=== PATIENT | female | born 1985 | race Caucasian/White ===

== ENCOUNTER 2019-05-17 13:51 | Day surgery (SDC) | payer BC ==
[2019-05-17] MEDS ORDERED: Sodium Chloride 0.9% 1,000 ML IV ONE (14:12)
--- NOTE | 2019-05-17 14:12 | EDM.PDOC ---
ED HPI GENERAL MEDICAL PROBLEM - General Chief Complaint: Abdominal Pain Stated Complaint: PAIN IN RT SIDE Time Seen by Provider: 05/17/19 13:55 Source of Information: Reports: Patient - History of Present Illness INITIAL COMMENTS - FREE TEXT/NARRATIVE: HISTORY AND PHYSICAL: History of present illness: [generally healthy female presents with acute onset abdominal pain 5/10 non radiating in right and left lower quadrant asooc with nausea vomiting loose stool no appetite ] Review of systems: As per history of present illness and below otherwise all systems reviewed and negative. Past medical history: As per history of present illness and as reviewed below otherwise noncontributory. Surgical history: As per history of present illness and as reviewed below otherwise noncontributory. Social history: No reported history of drug or alcohol abuse. Family history: As per history of present illness and as reviewed below otherwise noncontributory. Physical exam: HEENT: Atraumatic, normocephalic, pupils reactive, negative for conjunctival pallor or scleral icterus, mucous membranes moist, throat clear, neck supple, nontender, trachea midline. Lungs: Clear to auscultation, breath sounds equal bilaterally, chest nontender. Heart: S1S2, regular, negative for clicks, rubs, or JVD. Abdomen: Soft, nondistended, nontender. Negative for masses or hepatosplenomegaly. Negative for costovertebral tenderness. Pelvis: Stable nontender. Genitourinary: Deferred. Rectal: Deferred. Extremities: Atraumatic, negative for cords or calf pain. Neurovascular unremarkable. Neuro: Awake, alert, oriented. Cranial nerves II through XII unremarkable. Cerebellum unremarkable. Motor and sensory unremarkable throughout. Exam nonfocal. Diagnostics: [cbc, cmp, ua hcg, lip abd/pelvis ct w wo ] Therapeutics: [ns toradol zofran flomax solumedrol ] Impression: 4mm right UVJ stone ]uti Definitive disposition and diagnosis as appropriate pending reevaluation and review of above. Right Abdomen Pain Score (Numeric/FACES): 7 - Related Data Allergies Allergy/AdvReac Type Severity Reaction Status Date / Time No Known Allergies Allergy Verified 05/17/19 14:04 Home Meds: Home Meds . [No Known Home Meds] 05/17/19 [History] ED ROS GENERAL - Review of Systems Review Of Systems: See Below ED EXAM, GENERAL - Physical Exam Exam: See Below Course - Vital Signs Last Recorded V/S: Last Vital Signs Temp 96.6 F 05/17/19 16:04 Pulse 68 05/17/19 17:08 Resp 16 05/17/19 17:08 BP 129/63 05/17/19 17:08 Pulse Ox 98 05/17/19 17:08 - Orders/Labs/Meds Orders: Active Orders 24 hr Category Date Time Status Admission Status [Patient Status] [ADT] Stat ADT 05/17/19 17:42 Active Notify Provider Consults [RC] ASDIRECTED Care 05/17/19 17:00 Active Consult to Physician [CONS] Stat Cons 05/17/19 16:59 Active CULTURE BLOOD [BC] Stat Lab 05/17/19 17:24 Results CULTURE BLOOD [BC] Stat Lab 05/17/19 17:34 Received CULTURE URINE [RM] Stat Lab 05/17/19 14:02 Received Blood Culture x2 Reflex Set [OM.PC] Stat Oth 05/17/19 17:00 Ordered Labs: Laboratory Tests 05/17/19 05/17/19 05/17/19 Range/Units 14:02 14:02 14:35 WBC 13.61 H (4.0-11.0) K/uL RBC 4.60 (4.30-5.90) M/uL Hgb 14.3 (12.0-16.0) g/dL Hct 42.6 (36.0-46.0) % MCV 92.6 (80.0-98.0) fL MCH 31.1 (27.0-32.0) pg MCHC 33.6 (31.0-37.0) g/dL RDW Std Deviation 45.9 (28.0-62.0) fl RDW Coeff of Summer 14 (11.0-15.0) % Plt Count 285 (150-400) K/uL MPV 12.20 H (7.40-12.00) fL Neut % (Auto) 78.6 (48.0-80.0) % Lymph % (Auto) 14.1 L (16.0-40.0) % Clark % (Auto) 7.1 (0.0-15.0) % Eos % (Auto) 0.1 (0.0-7.0) % Baso % (Auto) 0.1 (0.0-1.5) % Neut # (Auto) 10.7 H (1.4-5.7) K/uL Lymph # (Auto) 1.9 (0.6-2.4) K/uL Clark # (Auto) 1.0 H (0.0-0.8) K/uL Eos # (Auto) 0.0 (0.0-0.7) K/uL Baso # (Auto) 0.0 (0.0-0.1) K/uL Nucleated RBC % 0.0 /100WBC Nucleated RBCs # 0 K/uL Sodium (136-145) mmol/L Potassium (3.5-5.1) mmol/L Chloride (98-107) mmol/L Carbon Dioxide (21.0-32.0) mmol/L BUN (7.0-18.0) mg/dL Creatinine (0.6-1.0) mg/dL Est Cr Clr Drug Dosing mL/min Estimated GFR (MDRD) ml/min Glucose (74-106) mg/dL Calcium (8.5-10.1) mg/dL Total Bilirubin (0.2-1.0) mg/dL AST (15-37) IU/L ALT (14-63) IU/L Alkaline Phosphatase (46-116) U/L Total Protein (6.4-8.2) g/dL Albumin (3.4-5.0) g/dL Globulin (2.6-4.0) g/dL Albumin/Globulin Ratio (0.9-1.6) Lipase (73-393) U/L Urine Color YELLOW Urine Appearance CLEAR Urine pH 6.0 (5.0-8.0) Ur Specific [place] >= 1.030 (1.001-1.035) Urine Protein NEGATIVE (NEGATIVE) mg/dL Urine Glucose (UA) NEGATIVE (NEGATIVE) mg/dL Urine Ketones 15 H (NEGATIVE) mg/dL Urine Occult Blood SMALL H (NEGATIVE) Urine Nitrite POSITIVE H (NEGATIVE) Urine Bilirubin NEGATIVE (NEGATIVE) Urine Urobilinogen 0.2 (<2.0) EU/dL Ur Leukocyte Esterase TRACE H (NEGATIVE) Urine RBC 1-3 (0-2/HPF) Urine WBC 15-20 (0-5/HPF) Ur Epithelial Cells FEW (NONE-FEW) Urine Bacteria 3+ H (NEGATIVE) Urine HCG, Qual NEGATIVE (NEGATIVE) 05/17/19 Range/Units 14:35 WBC (4.0-11.0) K/uL RBC (4.30-5.90) M/uL Hgb (12.0-16.0) g/dL Hct (36.0-46.0) % MCV (80.0-98.0) fL MCH (27.0-32.0) pg MCHC (31.0-37.0) g/dL RDW Std Deviation (28.0-62.0) fl RDW Coeff of Summer (11.0-15.0) % Plt Count (150-400) K/uL MPV (7.40-12.00) fL Neut % (Auto) (48.0-80.0) % Lymph % (Auto) (16.0-40.0) % Clark % (Auto) (0.0-15.0) % Eos % (Auto) (0.0-7.0) % Baso % (Auto) (0.0-1.5) % Neut # (Auto) (1.4-5.7) K/uL Lymph # (Auto) (0.6-2.4) K/uL Clark # (Auto) (0.0-0.8) K/uL Eos # (Auto) (0.0-0.7) K/uL Baso # (Auto) (0.0-0.1) K/uL Nucleated RBC % /100WBC Nucleated RBCs # K/uL Sodium 140 (136-145) mmol/L Potassium 4.0 (3.5-5.1) mmol/L Chloride 103 (98-107) mmol/L Carbon Dioxide 19.8 L (21.0-32.0) mmol/L BUN 10 (7.0-18.0) mg/dL Creatinine 0.7 (0.6-1.0) mg/dL Est Cr Clr Drug Dosing 106.01 mL/min Estimated GFR (MDRD) > 60.0 ml/min Glucose 114 H (74-106) mg/dL Calcium 8.6 (8.5-10.1) mg/dL Total Bilirubin 0.4 (0.2-1.0) mg/dL AST 21 (15-37) IU/L ALT 22 (14-63) IU/L Alkaline Phosphatase 68 (46-116) U/L Total Protein 7.5 (6.4-8.2) g/dL Albumin 3.8 (3.4-5.0) g/dL Globulin 3.7 (2.6-4.0) g/dL Albumin/Globulin Ratio 1.0 (0.9-1.6) Lipase 70 L (73-393) U/L Urine Color Urine Appearance Urine pH (5.0-8.0) Ur Specific [place] (1.001-1.035) Urine Protein (NEGATIVE) mg/dL Urine Glucose (UA) (NEGATIVE) mg/dL Urine Ketones (NEGATIVE) mg/dL Urine Occult Blood (NEGATIVE) Urine Nitrite (NEGATIVE) Urine Bilirubin (NEGATIVE) Urine Urobilinogen (<2.0) EU/dL Ur Leukocyte Esterase (NEGATIVE) Urine RBC (0-2/HPF) Urine WBC (0-5/HPF) Ur Epithelial Cells (NONE-FEW) Urine Bacteria (NEGATIVE) Urine HCG, Qual (NEGATIVE) Meds: Medications Discontinued Medications Generic Name Dose Route Start Last Admin Trade Name Freq PRN Reason Stop Dose Admin Sodium Chloride 1,000 mls @ 999 mls/hr 05/17/19 14:12 05/17/19 14:15 Normal Saline IV 05/17/19 15:12 999 mls/hr STAT ONE Administration Ceftriaxone Sodium/Dextrose 1 50 mls @ 100 mls/hr 05/17/19 17:15 05/17/19 17: 37 gm/ Premix IV 05/17/19 17:44 100 mls/hr ONETIME ONE Administration Iopamidol 100 ml 05/17/19 16:05 05/17/19 16:06 Isovue Multipack-370 (76%) IVPUSH 05/17/19 16:06 100 ml ONETIME STA Administration Ketorolac Tromethamine 30 mg 05/17/19 14:15 05/17/19 14:17 Toradol IVPUSH 05/17/19 14:16 30 mg ONETIME ONE Administration Methylprednisolone Sodium Succinate 125 mg 05/17/19 16:58 05/17/19 17:08 Solu-Medrol IVPUSH 05/17/19 16:59 125 mg ONETIME ONE Administration Ondansetron HCl 8 mg 05/17/19 14:15 05/17/19 14:17 Zofran IVPUSH 05/17/19 14:16 8 mg ONETIME ONE Administration Tamsulosin HCl 0.4 mg 05/17/19 16:57 05/17/19 17:08 Flomax PO 05/17/19 16:58 0.4 mg ONETIME ONE Administration Departure - Departure Time of Disposition: 17:53 Disposition: Refer to Observation Condition: Fair Clinical Impression: UTI (urinary tract infection), Ureteral stone with hydronephrosis - Discharge Information Referrals: PCP,Not In Area [Primary Care Provider] - Forms: ED Department Discharge Sepsis Event Note - Evaluation Sepsis Screening Result: No Definite Risk - Focused Exam Vital Signs: Vital Signs Temp Pulse Resp BP Pulse Ox 05/17/19 17:08 68 16 129/63 98 05/17/19 16:22 150/93 H 05/17/19 16:04 96.6 F 67 16 96 05/17/19 14:04 96 F 61 16 149/87 H 98 Date Exam was Performed: 05/17/19 Time Exam was Performed: 17:53 - My Orders Last 24 Hours: My Active Orders 05/17/19 16:59 Consult to Physician [CONS] Stat 05/17/19 17:00 Notify Provider Consults [RC] ASDIRECTED Blood Culture x2 Reflex Set [OM.PC] Stat 05/17/19 17:24 CULTURE BLOOD [BC] Stat 05/17/19 17:34 CULTURE BLOOD [BC] Stat 05/17/19 17:42 Admission Status [Patient Status] [ADT] Stat - Assessment/Plan Last 24 Hours: My Active Orders 05/17/19 16:59 Consult to Physician [CONS] Stat 05/17/19 17:00 Notify Provider Consults [RC] ASDIRECTED Blood Culture x2 Reflex Set [OM.PC] Stat 05/17/19 17:24 CULTURE BLOOD [BC] Stat 05/17/19 17:34 CULTURE BLOOD [BC] Stat 05/17/19 17:42 Admission Status [Patient Status] [ADT] Stat
[2019-05-17] MEDS ORDERED: Ondansetron 4 MG/2 ML SDV IVPUSH ONE (14:15)
[2019-05-17] MEDS ORDERED: Ketorolac 30 MG/ML SDV IVPUSH ONE (14:15)
[2019-05-17 15:38] LABS: BLOOD UREA NITROGEN,BUN 10 mg/dL (7.0-18.0); CARBON DIOXIDE,CO2 19.8 mmol/L (21.0-32.0); CHLORIDE,CL 103 mmol/L (98-107); GLUCOSE RANDOM 114 mg/dL (74-106); LIPASE 70 U/L (73-393); SODIUM,NA 140 mmol/L (136-145)
[2019-05-17] MEDS ORDERED: Iopamidol 755 MG/ML 200 ML Multipack Bottle IVPUSH STA (16:05)
--- NOTE | 2019-05-17 16:33 | CT ---
Indication: Pain in mid back. Technique: Multiple contiguous axial images were obtained from the lung bases is symphysis pubis without intravenous contrast. Then, after the intravenous administration of 100 milliliters Isovue 370, again, multiple images were obtained from the lung bases through the symphysis pubis. Please note that all CT scans at this facility use dose modulation, iterative reconstruction, and/or weight-based dosing when appropriate to reduce radiation dose to as low as reasonably achievable. Comparison: None Findings: Two small soft tissue nodular densities are identified along the abdominal site of the left hemidiaphragm. The more medial and posterior measures 9 mm in size. The more lateral and anterior also measures 9 mm in size. The lung bases are clear. The heart is normal in size. No pericardial effusions identified. 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 The unenhanced liver, gallbladder, pancreas, and adrenal glands are normal. A nonobstructive 2 millimeter right renal calculus is identified on image number 72, series 201. In the pelvis, thickening of the wall the urinary bladder is identified. Bilateral ovarian cysts are identified. The cyst on the left measures approximately 6.6 x 4.1 cm in size. The cyst on the right measures 5.2 by 3.5 cm in size. A few sigmoid diverticula are identified. There is no evidence of diverticulitis. A small to moderate amount of stool is identified within the colon. The appendix is normal in caliber. To the right of midline, posterior to the level of the uterus and to the right of the rectum, a round fluid collection is identified. This measures 2.7 x 2.1 centimeters in size. This is best seen on image number 122, series 301. Is difficult to determine if this is coming from the rectum or from the uterus. No free air or free fluid is identified within the abdomen or pelvis. The aorta is normal in caliber. Bilateral hydronephrosis and hydroureter is identified. At the right ureteral vesicular junction, a 4 mm calculus is identified. This is best seen on image number 134, series 301. On the left, no stone is identified. However, the ureter is dilated to the level of the enlarged left ovary. Distal stone is suspected, but must be difficult to appreciate On the enhanced images, both kidneys enhance symmetrically. No intrahepatic masses are identified. The liver is mildly enlarged. On the enhanced CT scan Impression: Bilateral hydronephrosis and hydroureter. A distal right ureteral calculus is identified. No definite calculus is identified on the left. Bilateral ovarian cysts, greater on the left than the right. Mild hepatomegaly. Postsurgical changes of a splenomegaly. Fluid-filled structure identified posterior to the uterus and adjacent to the rectum, this may represent a duplication cyst. Thickening of the wall the urinary bladder, which can be seen with cystitis. Please note that all CT scans at this facility use dose modulation, iterative reconstruction, and/or weight-based dosing when appropriate to reduce radiation dose to as low as reasonably achievable. Dictated by Birdie Odom MD @ May 17 2019 4:21PM Signed by Dr. Birdie Odom @ May 17 2019 4:31PM
[2019-05-17] MEDS ORDERED: Tamsulosin 0.4 MG Cap.ER PO ONE (16:57)
[2019-05-17] MEDS ORDERED: methylPREDNISolone Sodium Succinate 125 MG/2 ML SDV IVPUSH ONE (16:58)
[2019-05-17] MEDS ORDERED: cefTRIAXone 1 GM in Premix Bag 1 BAG IV ONE (17:15)
--- NOTE | 2019-05-17 19:06 | PCM.PREANE ---
Preanesthetic Assessment - Anesthesia/Transfusion/Family Hx Anesthesia History: Prior Anesthesia Without Reaction Family History of Anesthesia Reaction: No Transfusion History: Unknown Intubation History: Unknown - Review of Systems General: No Symptoms Pulmonary: No Symptoms Cardiovascular: No Symptoms Gastrointestinal: No Symptoms Neurological: No Symptoms Other: Reports: None - Physical Assessment Vital Signs: Last Vital Signs Temp 35.6 C 05/17/19 18:13 Pulse 70 05/17/19 18:13 Resp 16 05/17/19 18:13 BP 144/79 H 05/17/19 18:13 Pulse Ox 97 05/17/19 18:13 Height: 5 ft 6 in Weight: 92.986 kg ASA Class: 2E Mental Status: Alert & Oriented x3 Airway Class: Mallampati = 1 Dentition: Reports: Normal Dentition Thyro-Mental Finger Breadths: 2 Mouth Opening Finger Breadths: 3 ROM/Head Extension: Full Lungs: Clear to Auscultation, Normal Respiratory Effort Cardiovascular: Regular Rate, Regular Rhythm - Lab Values: Laboratory Last Values WBC 13.61 K/uL (4.0-11.0) H 05/17/19 14:35 RBC 4.60 M/uL (4.30-5.90) 05/17/19 14:35 Hgb 14.3 g/dL (12.0-16.0) 05/17/19 14:35 Hct 42.6 % (36.0-46.0) 05/17/19 14:35 MCV 92.6 fL (80.0-98.0) 05/17/19 14:35 MCH 31.1 pg (27.0-32.0) 05/17/19 14:35 MCHC 33.6 g/dL (31.0-37.0) 05/17/19 14:35 RDW Std Deviation 45.9 fl (28.0-62.0) 05/17/19 14:35 RDW Coeff of Summer 14 % (11.0-15.0) 05/17/19 14:35 Plt Count 285 K/uL (150-400) 05/17/19 14:35 MPV 12.20 fL (7.40-12.00) H 05/17/19 14:35 Neut % (Auto) 78.6 % (48.0-80.0) 05/17/19 14:35 Lymph % (Auto) 14.1 % (16.0-40.0) L 05/17/19 14:35 Starr % (Auto) 7.1 % (0.0-15.0) 05/17/19 14:35 Eos % (Auto) 0.1 % (0.0-7.0) 05/17/19 14:35 Baso % (Auto) 0.1 % (0.0-1.5) 05/17/19 14:35 Neut # (Auto) 10.7 K/uL (1.4-5.7) H 05/17/19 14:35 Lymph # (Auto) 1.9 K/uL (0.6-2.4) 05/17/19 14:35 Starr # (Auto) 1.0 K/uL (0.0-0.8) H 05/17/19 14:35 Eos # (Auto) 0.0 K/uL (0.0-0.7) 05/17/19 14:35 Baso # (Auto) 0.0 K/uL (0.0-0.1) 05/17/19 14:35 Nucleated RBC % 0.0 /100WBC 05/17/19 14:35 Nucleated RBCs # 0 K/uL 05/17/19 14:35 Sodium 140 mmol/L (136-145) 05/17/19 14:35 Potassium 4.0 mmol/L (3.5-5.1) 05/17/19 14:35 Chloride 103 mmol/L (98-107) 05/17/19 14:35 Carbon Dioxide 19.8 mmol/L (21.0-32.0) L 05/17/19 14:35 BUN 10 mg/dL (7.0-18.0) 05/17/19 14:35 Creatinine 0.7 mg/dL (0.6-1.0) 05/17/19 14:35 Est Cr Clr Drug Dosing 106.01 mL/min 05/17/19 14:35 Estimated GFR (MDRD) > 60.0 ml/min 05/17/19 14:35 Glucose 114 mg/dL (74-106) H 05/17/19 14:35 Calcium 8.6 mg/dL (8.5-10.1) 05/17/19 14:35 Total Bilirubin 0.4 mg/dL (0.2-1.0) 05/17/19 14:35 AST 21 IU/L (15-37) 05/17/19 14:35 ALT 22 IU/L (14-63) 05/17/19 14:35 Alkaline Phosphatase 68 U/L (46-116) 05/17/19 14:35 Total Protein 7.5 g/dL (6.4-8.2) 05/17/19 14:35 Albumin 3.8 g/dL (3.4-5.0) 05/17/19 14:35 Globulin 3.7 g/dL (2.6-4.0) 05/17/19 14:35 Albumin/Globulin Ratio 1.0 (0.9-1.6) 05/17/19 14:35 Lipase 70 U/L (73-393) L 05/17/19 14:35 Urine Color YELLOW 05/17/19 14:02 Urine Appearance CLEAR 05/17/19 14:02 Urine pH 6.0 (5.0-8.0) 05/17/19 14:02 Ur Specific [place] >= 1.030 (1.001-1.035) 05/17/19 14:02 Urine Protein NEGATIVE mg/dL (NEGATIVE) 05/17/19 14:02 Urine Glucose (UA) NEGATIVE mg/dL (NEGATIVE) 05/17/19 14:02 Urine Ketones 15 mg/dL (NEGATIVE) H 05/17/19 14:02 Urine Occult Blood SMALL (NEGATIVE) H 05/17/19 14:02 Urine Nitrite POSITIVE (NEGATIVE) H 05/17/19 14:02 Urine Bilirubin NEGATIVE (NEGATIVE) 05/17/19 14:02 Urine Urobilinogen 0.2 EU/dL (<2.0) 05/17/19 14:02 Ur Leukocyte Esterase TRACE (NEGATIVE) H 05/17/19 14:02 Urine RBC 1-3 (0-2/HPF) 05/17/19 14:02 Urine WBC 15-20 (0-5/HPF) 05/17/19 14:02 Ur Epithelial Cells FEW (NONE-FEW) 05/17/19 14:02 Urine Bacteria 3+ (NEGATIVE) H 05/17/19 14:02 Urine HCG, Qual NEGATIVE (NEGATIVE) 05/17/19 14:02 - Allergies Allergies/Adverse Reactions: Allergies Allergy/AdvReac Type Severity Reaction Status Date / Time No Known Allergies Allergy Verified 05/17/19 14:04 - Blood Blood Available: No - Anesthesia Plan Pre-Op Medication Ordered: None - Acknowledgements Anesthesia Type Planned: General Anesthesia Pt an Appropriate Candidate for the Planned Anesthesia: Yes Alternatives and Risks of Anesthesia Discussed w Pt/Guardian: Yes Pt/Guardian Understands and Agrees with Anesthesia Plan: Yes PreAnesthesia Questionnaire - Past Health History Medical/Surgical History: Denies Medical/Surgical History Genitourinary History: Reports: Renal Calculus Other Hematologic History: 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 - Infectious Disease History Infectious Disease History: Reports: Chicken Pox - Past Surgical History GI Surgical History: Reports: Other (See Below) (splenectomy) - SUBSTANCE USE Smoking Status *Q: Never Smoker Recreational Drug Use History: No - HOME MEDS Home Medications: Home Meds . [No Known Home Meds] 05/17/19 [History] - CURRENT (IN HOUSE) MEDS Current Meds: Current Medications Discontinued Medications Sodium Chloride (Normal Saline) 1,000 mls @ 999 mls/hr IV STAT ONE Stop: 05/17/19 15:12 Last Admin: 05/17/19 14:15 Dose: 999 mls/hr Ceftriaxone Sodium/Dextrose 1 (gm/ Premix) 50 mls @ 100 mls/hr IV ONETIME ONE Stop: 05/17/19 17:44 Last Admin: 05/17/19 17:37 Dose: 100 mls/hr Iopamidol (Isovue Multipack-370 (76%)) 100 ml IVPUSH ONETIME STA Stop: 05/17/19 16:06 Last Admin: 05/17/19 16:06 Dose: 100 ml Ketorolac Tromethamine (Toradol) 30 mg IVPUSH ONETIME ONE Stop: 05/17/19 14:16 Last Admin: 05/17/19 14:17 Dose: 30 mg Methylprednisolone Sodium Succinate (Solu-Medrol) 125 mg IVPUSH ONETIME ONE Stop: 05/17/19 16:59 Last Admin: 05/17/19 17:08 Dose: 125 mg Ondansetron HCl (Zofran) 8 mg IVPUSH ONETIME ONE Stop: 05/17/19 14:16 Last Admin: 05/17/19 14:17 Dose: 8 mg Tamsulosin HCl (Flomax) 0.4 mg PO ONETIME ONE Stop: 05/17/19 16:58 Last Admin: 05/17/19 17:08 Dose: 0.4 mg
[2019-05-17] MEDS ORDERED: fentaNYL 100 MCG/2 ML SDV ONE (19:58)
[2019-05-17] MEDS ORDERED: Dexamethasone 4 MG/ML 5 ML MDV ONE (19:58)
[2019-05-17] MEDS ORDERED: Midazolam 1 MG/ML 2 ML SDV ONE (19:58)
[2019-05-17] MEDS ORDERED: Lidocaine 2% 5 ML SDV ONE (19:58)
[2019-05-17] MEDS ORDERED: Ondansetron 4 MG/2 ML SDV ONE (19:58)
[2019-05-17] MEDS ORDERED: Ketorolac 30 MG/ML SDV ONE (19:58)
[2019-05-17] MEDS ORDERED: Propofol 200 MG/20 ML SDV ONE (19:58)
[2019-05-17] MEDS ORDERED: Albuterol 0.083% 2.5 MG/3 ML Neb Soln NEB PRN (20:04)
[2019-05-17] MEDS ORDERED: Atropine 0.1 MG/ML 10 ML Syringe IVPUSH PRN ×2 (20:04)
[2019-05-17] MEDS ORDERED: Naloxone 0.4 MG/ML Syringe IVPUSH PRN (20:04)
[2019-05-17] MEDS ORDERED: fentaNYL 100 MCG/2 ML SDV IVPUSH PRN (20:04)
[2019-05-17] MEDS ORDERED: EPINEPHrine 1:10,000 1 MG/10 ML Syringe IVPUSH PRN (20:04)
[2019-05-17] MEDS ORDERED: 50% Dextrose in Water 50 ML Syringe IVPUSH PRN (20:04)
[2019-05-17] MEDS ORDERED: Ciprofloxacin in D5W 200 ML ONE (20:29)
[2019-05-17] MEDS ORDERED: Iopamidol 200-M 10 ML vial ITHECAL ONE ×2 (20:33)
[2019-05-17] MEDS ORDERED: Meperidine PF 25 MG/ML Syringe ONE (21:25)
--- NOTE | 2019-05-17 22:02 | PCM48HPAN ---
Post Anesthesia Note - EVALUATION WITHIN 48HRS OF ANESTHETIC Vital Signs in Normal Range: Yes Patient Participated in Evaluation: Yes Respiratory Function Stable: Yes Airway Patent: Yes Cardiovascular Function Stable: Yes Hydration Status Stable: Yes Pain Control Satisfactory: Yes Nausea and Vomiting Control Satisfactory: Yes Mental Status Recovered: Yes Vital Signs: Last Vital Signs Temp 36.8 C 05/17/19 21:23 Pulse 73 05/17/19 21:49 Resp 16 05/17/19 21:49 BP 124/74 05/17/19 21:49 Pulse Ox 98 05/17/19 21:49
--- NOTE | 2019-05-17 22:03 | PCM.POSTAN ---
POST ANESTHESIA ASSESSMENT - MENTAL STATUS Mental Status: Alert, Oriented - VITAL SIGNS Vital Signs: Last Vital Signs Temp 36.8 C 05/17/19 21:23 Pulse 73 05/17/19 21:49 Resp 16 05/17/19 21:49 BP 124/74 05/17/19 21:49 Pulse Ox 98 05/17/19 21:49 - RESPIRATORY Respiratory Status: Respiratory Rate WNL, Airway Patent, O2 Saturation Stable - CARDIOVASCULAR CV Status: Pulse Rate WNL, Blood Pressure Stable - GASTROINTESTINAL GI Status: No Symptoms - POST OP HYDRATION Hydration Status: Adequate & Stable
--- NOTE | 2019-05-18 02:56 | OR ---
SURGEON: Shaun French M.D. DATE OF PROCEDURE: 05/17/2019 PREOPERATIVE DIAGNOSES: 1. Bilateral hydronephrosis. 2. Right lower ureteral stone. 3. Urinary tract infection. POSTOPERATIVE DIAGNOSES: 1. Bilateral hydronephrosis. 2. Right lower ureteral stone. 3. Urinary tract infection. OPERATIONS: 1. Cystoscopy. 2. Right ureteroscopy. 3. Bilateral double-J stent placement. DESCRIPTION: The patient was given general anesthesia. She was placed in the dorsal lithotomy position, prepped, and draped in sterile drapes. Cystourethroscopy was done that showed cystitis glandularis. A guidewire was advanced in the right ureter. The lower ureter was then dilated using a UroMax balloon dilator to approximately 15-Amharic. A rigid ureteroscope was advanced in the right ureter. The stone was visualized behind a narrow part of the ureter, so the UroMax was placed back in, and that narrow area was dilated. The guidewire was still in place. The rigid ureteroscope was advanced in the right ureter. The stone was removed. On the way out, the stone fell out of the grasper before it could be delivered. The second ureteroscopy that was done after the narrow area was dilated showed that the ureter in that particular spot was torn, which is what the UroMax had done. A 6-Amharic 26 cm double-J stent was done. The left side was then cannulated with a guidewire, over which a 6-Amharic 26 cm double-J stent was placed, and that resulted in what is most consistent with a hydronephrotic drip on that side. The bladder was emptied, and the patient was moved to the recovery room in good condition. PLAN: Those [address] be in place for the next 6 weeks, primarily because of the tear in the right ureter to allow that to heal and also to allow her time to consult with a software tools engineer regarding the ovarian cyst and the possible compression of the left ureter. YOSEPH / STEPHIE /[id number]
--- NOTE | 2019-05-18 08:03 | CONS ---
DATE OF CONSULTATION: 05/17/2019 DATE OF : 1985 PRIMARY CARE PHYSICIAN: Kosta Hernández PCP HISTORY OF PRESENT ILLNESS: 34 years old. She was seen in the emergency room with sudden onset of right flank pain. No previous history of urinary stones. Her UA showed 1 to 3 red blood cells per high-power field and 15 to 20 white blood cells per high-power field. She had white blood count of 13,000. Her vital signs were normal. She was afebrile. She had a CT scan that I reviewed, and that showed a 4 mm right lower ureteral stone, bilateral large ovarian cysts, and left-sided hydronephrosis with no stones. PHYSICAL EXAMINATION: GENERAL: She is alert. She is oriented. She is reasonably comfortable at this time. HEART: Normal sinus rhythm. LUNGS: Clear. ABDOMEN: Mild tenderness over the right side of the abdomen. DIAGNOSES: 1. Right ureteral stone. 2. Bilateral hydronephrosis. PLAN: Right ureteroscopy and bilateral stent placement. The other option would have been to put a double-J stent in, give her IV antibiotics, and wait. However, because she is stable and the stone is relatively small and in the lower ureter, I decided to go ahead and take the stone out instead of just putting her to sleep and putting a double-J stent in. In preparation for that, she received 1 g of Rocephin IV and 400 mg of Cipro IV. YOSEPH / STEPHIE /[id number]
--- NOTE | 2019-05-20 14:14 | CR ---
EXAM DATE: 05/17/19 PATIENT'S AGE: 34 Abdomen: Two fluoroscopic spot views were obtained utilizing C-arm device. Study shows partially visualized ureteral stent. Fluoroscopy time given as 32.8 seconds. Impression: 1. Procedural study. Diagnostic code #2 This report was dictated in [place] Standard Time Report Signed by Proxy. PEYTON
== END 2019-05-18 00:15 | disposition home or self-care (01) ==
LOC: MW.ED 13:51 → MW.SDS 17:55 → MW.MS 17:55 → MW.SDS 05-18 00:15
PROVIDERS: ATTEND Urology
DX: N13.2 Hydronephrosis with renal and ureteral calculous obstruction (principal); N39.0 Urinary tract infection, site not specified
CPT/HCPCS: 36415; 52332; 52352; 74178; 76000; 80053; 81001; 81025; 83690; 85025; 87040; 87086; 87088; 87186; 96361; 96365; 96375; 99285; A9270; C1769; C2617; J0696; J0744; J1100; J1885; J2001; J2250; J2405; J2704; J2930; J3010; J7030; Q9966; Q9967; 00910; 99284

== ENCOUNTER 2019-07-20 09:08 | Day surgery (SDC) | payer BC ==
[~2019-07-20 09:08] MED LIST: Dexamethasone 4 MG/ML 5 ML MDV ONE; Glycopyrrolate 0.2 MG/ML SDV ONE; Midazolam 1 MG/ML 2 ML SDV ONE; Neostigmine Methylsulfate 1 MG/ML 5 ML Syringe ONE; Ondansetron 4 MG/2 ML SDV ONE; Propofol 200 MG/20 ML SDV ONE; Rocuronium 100 MG/10 ML Syringe ONE; Sodium Chloride 0.9% 10 ML SDV IV PRN; Sodium Chloride 0.9% 10 ML Syringe FLUSH PRN; Sodium Chloride 0.9% 2.5 ML Syringe FLUSH PRN; Sodium Chloride 0.9% 20 ML ONE; Succinylcholine/Sod PF 100 MG/5 ML SYRINGE IV ONE; ceFAZolin/Dextrose,Iso-Osmotic 2 GM/50 ML Duplex Bag IV ONE; ePHEDrine 50 MG/ML SDV ONE; fentaNYL 250 MCG/5 ML SDV ONE
--- NOTE | 2019-07-20 09:38 | PCM.PREANE ---
Preanesthetic Assessment - Anesthesia/Transfusion/Family Hx Anesthesia History: Prior Anesthesia Without Reaction Family History of Anesthesia Reaction: No Transfusion History: No Prior Transfusion(s) Intubation History: Unknown - Review of Systems General: No Symptoms Pulmonary: No Symptoms Cardiovascular: No Symptoms Gastrointestinal: No Symptoms Neurological: No Symptoms Other: Reports: None - Physical Assessment Height: 5 ft 5.75 in Weight: 97.069 kg ASA Class: 2 Mental Status: Alert & Oriented x3 Airway Class: Mallampati = 2 Dentition: Reports: Normal Dentition Thyro-Mental Finger Breadths: 2 Mouth Opening Finger Breadths: 3 ROM/Head Extension: Full Lungs: Clear to Auscultation, Normal Respiratory Effort Cardiovascular: Regular Rate, Regular Rhythm - Allergies Allergies/Adverse Reactions: Allergies Allergy/AdvReac Type Severity Reaction Status Date / Time adhesive tape Allergy Redness Verified 07/15/19 09:39 latex Allergy Rash Verified 07/15/19 09:39 - Blood Blood Available: No - Anesthesia Plan Pre-Op Medication Ordered: None - Acknowledgements Anesthesia Type Planned: General Anesthesia Pt an Appropriate Candidate for the Planned Anesthesia: Yes Alternatives and Risks of Anesthesia Discussed w Pt/Guardian: Yes Pt/Guardian Understands and Agrees with Anesthesia Plan: Yes PreAnesthesia Questionnaire - Past Health History Medical/Surgical History: Denies Medical/Surgical History HEENT History: Reports: None Cardiovascular History: Reports: None Respiratory History: Reports: None Gastrointestinal History: Reports: None Genitourinary History: Reports: Renal Calculus (lithotripsy and stent placement 05/17/19) SCHEDULING MANAGER History: Reports: Other (See Below) (large bill. ovarian cyst) Musculoskeletal History: Reports: None Neurological History: Reports: None Psychiatric History: Reports: None Endocrine/Metabolic History: Reports: Obesity/BMI 30+ Hematologic History: Reports: Other (See Below) Other Hematologic History: 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 [No Known Home Meds] 05/17/19 [History] - CURRENT (IN HOUSE) MEDS Current Meds: Current Medications Lactated Ringer's (Ringers, Lactated) 1,000 mls @ 500 mls/hr IV BOLUS TAWANNA Sodium Chloride (Saline Flush) 10 ml FLUSH ASDIRECTED PRN PRN Reason: Keep Vein Open Sodium Chloride (Saline Flush) 2.5 ml FLUSH ASDIRECTED PRN PRN Reason: Keep Vein Open Sodium Chloride (Normal Saline) 10 ml IV ASDIRECTED PRN PRN Reason: IV Use Sodium Chloride (Saline Flush) 10 ml FLUSH ASDIRECTED PRN PRN Reason: Keep Vein Open Sodium Chloride (Saline Flush) 2.5 ml FLUSH ASDIRECTED PRN PRN Reason: Keep Vein Open Sodium Chloride (Normal Saline) 10 ml IV ASDIRECTED PRN PRN Reason: IV Use Discontinued Medications Cefazolin Sodium/Dextrose (Ancef) Confirm Administered Dose 2 gm IV .STK-MED ONE Stop: 07/20/19 09:05 Dexamethasone (Dexamethasone) Confirm Administered Dose 20 mg .ROUTE .STK-MED ONE Stop: 07/20/19 08:34 Ephedrine Sulfate (Ephedrine Sulfate) Confirm Administered Dose 50 mg .ROUTE .STK-MED ONE Stop: 07/20/19 08:34 Fentanyl (Sublimaze) Confirm Administered Dose 250 mcg .ROUTE .STK-MED ONE Stop: 07/20/19 08:48 Glycopyrrolate (Robinul) Confirm Administered Dose 0.6 mg .ROUTE .STK-MED ONE Stop: 07/20/19 08:34 Sodium Chloride (Normal Saline) Confirm Administered Dose 20 mls @ as directed .ROUTE .STK-MED ONE Stop: 07/20/19 08:35 Midazolam HCl (Versed 1 Mg/Ml) Confirm Administered Dose 2 mg .ROUTE .STK-MED ONE Stop: 02/18/20 08:47 Neostigmine Methylsulfate (Neostigmine) Confirm Administered Dose 5 mg .ROUTE .STK-MED ONE Stop: 07/20/19 08:34 Ondansetron HCl (Zofran) Confirm Administered Dose 4 mg .ROUTE .STK-MED ONE Stop: 07/20/19 08:34 Propofol (Diprivan 20 Ml) Confirm Administered Dose 200 mg .ROUTE .STK-MED ONE Stop: 07/20/19 08:48 Rocuronium [place] (Zemuron) Confirm Administered Dose 100 mg .ROUTE .STK-MED ONE Stop: 07/20/19 08:34
[2019-07-20] MEDS ORDERED: Sodium Chloride 0.9% 2.5 ML Syringe FLUSH PRN (10:00)
[2019-07-20] MEDS ORDERED: Lactated Ringers 1,000 ML IV SCH (10:00)
[2019-07-20] MEDS ORDERED: Sodium Chloride 0.9% 10 ML SDV IV PRN (10:00)
[2019-07-20] MEDS ORDERED: Sodium Chloride 0.9% 10 ML Syringe FLUSH PRN (10:00)
[2019-07-20] MEDS ORDERED: EPINEPHrine 1:10,000 1 MG/10 ML Syringe IVPUSH PRN (11:11)
[2019-07-20] MEDS ORDERED: Naloxone 0.4 MG/ML Syringe IVPUSH PRN (11:11)
[2019-07-20] MEDS ORDERED: Albuterol 0.083% 2.5 MG/3 ML Neb Soln NEB PRN (11:11)
[2019-07-20] MEDS ORDERED: fentaNYL 100 MCG/2 ML SDV IVPUSH PRN ×2 (11:11→11:31)
[2019-07-20] MEDS ORDERED: Atropine 0.1 MG/ML 10 ML Syringe IVPUSH PRN ×2 (11:11)
[2019-07-20] MEDS ORDERED: 50% Dextrose in Water 50 ML Syringe IVPUSH PRN (11:11)
[2019-07-20] MEDS ORDERED: Bupivacaine 0.25% 10 ML SDV ONE (11:19)
[2019-07-20] MEDS ORDERED: Methylene Blue 50 MG/10 ML Ampule ONE (11:20)
[2019-07-20] MEDS ORDERED: HYDROmorphone 2 MG/ML Syringe IVPUSH PRN (11:31)
[2019-07-20] MEDS ORDERED: fentaNYL 100 MCG/2 ML SDV ONE ×4 (12:36→14:19)
[2019-07-20] MEDS ORDERED: Labetalol 100 MG/20 ML MDV ONE (12:51)
[2019-07-20] MEDS ORDERED: Octyl 2-Cyanoacrylate 1 Tube ONE (14:14)
[2019-07-20] MEDS ORDERED: Acetaminophen/oxyCODONE 325-5 MG Tab PO PRN (14:41)
--- NOTE | 2019-07-20 14:46 | PCM.OPNOTE ---
- General Post-Op/Procedure Note Date of Surgery/Procedure: 07/20/19 Operative Procedure(s): Laparoscopic Bilateral cystectomy. Lysis of Adhesion Findings: EUA showed normal sized uterus Laparoscopy showed Dense pelvic adhesive diseases Endometriotic deposits (brown spots around all the abdomen, pelvis and bowel) Left ovarian endometrioma about 5cm ,densely adhered to the pelvic side wall, Uterus and entangled with fallopian tubes Right ovarian endometrioma about 2 cm Dense adhesion between the sigmoid colon and back of uterus Pre Op Diagnosis: Bilateral ovarian cyst Post-Op Diagnosis: Endometriosis. Bilateral endometrioma Anesthesia Technique: General ET Tube Primary Surgeon: Milind Car Secondary Surgeon: Farhat Her [facility] Pathology: Ovarian cyst wall Fluid Replacement, Intraop: 1,800 EBL in mLs: 20 Complications: None Condition: Good
[2019-07-20] MEDS: hydrALAZINE 20 MG/ML SDV IVPUSH PRN ×2 (15:06→15:50)
--- NOTE | 2019-07-20 15:41 | PCM.POSTAN ---
POST ANESTHESIA ASSESSMENT - MENTAL STATUS Mental Status: Alert, Oriented - VITAL SIGNS Vital Signs: Last Vital Signs Temp 36.6 C 07/20/19 14:37 Pulse 78 07/20/19 15:33 Resp 13 07/20/19 15:33 BP 153/80 H 07/20/19 15:33 Pulse Ox 93 L 07/20/19 15:33 - RESPIRATORY Respiratory Status: Respiratory Rate WNL, Airway Patent, O2 Saturation Stable - CARDIOVASCULAR CV Status: Pulse Rate WNL, Blood Pressure Stable - GASTROINTESTINAL GI Status: No Symptoms - PAIN Pain Score: 2 - POST OP HYDRATION Hydration Status: Adequate & Stable - OBSERVATIONS Free Text/Narrative:: No anesthesia problems
--- NOTE | 2019-07-20 16:59 | PCM48HPAN ---
Post Anesthesia Note - EVALUATION WITHIN 48HRS OF ANESTHETIC Vital Signs in Normal Range: Yes Patient Participated in Evaluation: Yes Respiratory Function Stable: Yes Airway Patent: Yes Cardiovascular Function Stable: Yes Hydration Status Stable: Yes Pain Control Satisfactory: Yes Nausea and Vomiting Control Satisfactory: Yes Mental Status Recovered: Yes Vital Signs: Last Vital Signs Temp 36.6 C 07/20/19 14:37 Pulse 102 H 07/20/19 16:45 Resp 15 07/20/19 16:45 BP 140/63 07/20/19 16:45 Pulse Ox 95 07/20/19 16:45 - COMMENTS/OBSERVATIONS Free Text/Narrative:: no anesthesia problems
--- NOTE | 2019-07-21 16:24 | OR ---
SURGEON: SIVAKUMAR KINGSLEY DATE OF PROCEDURE: 07/20/2019 PREOPERATIVE DIAGNOSIS: A 34-year-old para 0 with findings of bilateral ovarian cyst. POSTOPERATIVE DIAGNOSES: Bilateral endometrioma and severe pelvic adhesive disease. PRIMARY SURGEON: Dr. Sivakumar Kingsley. SECONDARY SURGEON: Farhat Her MD. COMPLICATIONS: None. ANESTHESIA: General endotracheal. ESTIMATED BLOOD LOSS: 10 mL. NOTES AND FINDINGS: 1. Severe pelvic adhesive disease. 2. Bilateral ovarian cyst. Left was about 5 cm. Right was about 3 cm dilated ovarian cyst. The dense adhesions, especially on the left side of the fallopian tube, matted with the colon in the posterior cul-de-sac in close proximity with the uterosacrals. Also, on the back of the uterus was noted a lot of cystic changes consistent with inflammation. The abdomen all the way to the colon had endometriotic deposits, brownish tarry deposits around the intestines and the abdominal ramirez. COMPLICATION: None. BRIEF HISTORY: A 34-year-old who was referred by Dr. French because of CT finding of bilateral ovarian cyst. She was noted also to have a left hydroureter as a result of the ovarian cyst compressing the ureter on the left side. Prior to this, she already had a stent placed by Dr. French. The patient denied any pain. She denies any pelvic pain. DESCRIPTION OF PROCEDURE: The patient was taken to the operating room where general anesthesia was done without difficulty. She was placed in dorsal lithotomy position with Luis Enrique stirrups. She was prepared and draped in the normal sterile fashion. The bladder was emptied with a straight cath. The speculum was used to expose the cervix and the uterine manipulator was placed in after dilation of the cervix. Then, attention was placed to the abdomen. Subumbilical fold was infiltrated with 0.25% Marcaine. A 5 mm incision was made. The abdomen was entered via direct entry with the fiberoptic trocar and pneumoperitoneum was obtained with CO2 mmHg. The patient was then placed in Trendelenburg position. The right and left lower quadrant ports were placed 2 fingerbreadths medial and superior to the anterior superior iliac spine. The above-noted finding was noted with dense adhesions of the ovary to the sidewall, the posterior cul-de- sac, and the colon. The bowel also had spots of endometriotic deposits. First attempt was made to free the fallopian tube and ovaries for easy access of the endometrioma. This was done with mainly blunt dissection and also with hydrodissection. When the fallopian tube was released, the attempt was made to do a cystectomy for the cyst ruptured and a chocolate cyst fluid was expelled from the cyst and it was suctioned and copious irrigation was done. Then, the attempt was made to separate the cyst wall from the ovary, which was done with the aid of the unipolar scissors and this was done without any difficulty and hemostasis was noted also in the base of the ovary with the Kleppinger device and hemostasis was noted on the ovary. Then, the cystectomy was started on the right ovary. The right ovary was more mobile than compared to the left and the incision was made with the aid of the unipolar scissors. The content of the cyst was drained and the cyst wall was removed without any difficulty after which the abdomen was irrigated with about 1 L of water and was expected, hemostasis was noted. The trocars were then removed and the incision was closed with 3-0 Monocryl and Dermabond. The patient tolerated the procedure well and taken to recovery room in stable condition. JOSE CARD /[id number]
== END 2019-07-20 18:15 | disposition home or self-care (01) ==
LOC: MW.SDS 09:08
PROVIDERS: ATTEND Obstetrics & Gynecology
DX: N83.201 Unspecified ovarian cyst, right side (principal); N83.202 Unspecified ovarian cyst, left side; N80.1 Endometriosis of ovary; K66.0 Peritoneal adhesions (postprocedural) (postinfection); N13.4 Hydroureter; E66.9 Obesity, unspecified; Z68.34 Body mass index [BMI] 34.0-34.9, adult; Z91.048 Other nonmedicinal substance allergy status; Z91.040 Latex allergy status
CPT/HCPCS: 36415; 58662; 84702; 85027; 86850; 86900; 86901; A9270; J0360; J0690; J1100; J1170; J2250; J2405; J2704; J3010; J3490; J7120; 88104; 88305

== ENCOUNTER 2021-02-25 12:33 | Emergency (ER) | payer BC ==
[2021-02-25] MEDS ORDERED: Sodium Chloride 0.9% 2.5 ML Syringe FLUSH PRN (13:52)
[2021-02-25] MEDS ORDERED: Sodium Chloride 0.9% 10 ML Syringe FLUSH PRN (13:52)
[2021-02-25] MEDS ORDERED: Ondansetron 4 MG/2 ML SDV IVPUSH ONE (13:52)
[2021-02-25] MEDS ORDERED: Sodium Chloride 0.9% 1,000 ML IV ONE (13:52)
--- NOTE | 2021-02-25 13:54 | EDM.PDOC ---
ED HPI GENERAL MEDICAL PROBLEM - General Chief Complaint: General Stated Complaint: BODY PAIN Time Seen by Provider: 02/25/21 13:03 Source of Information: Reports: Patient History Limitations: Reports: No Limitations - History of Present Illness INITIAL COMMENTS - FREE TEXT/NARRATIVE: HISTORY AND PHYSICAL: History of present illness: The patient is a 36-year-old female who presents to the emergency room with complaints of fever, muscle aches, dizziness and brain fog for 1 week. The patient states that she also started having a fever about 5 days ago her max was 102 and her normal has been 100 at home. The patient states that she has been drinking fluids as it is that her urine looked a little concentrated this morning. She has had a dry cough. She has had a headache but no sore throat. She states she was a little nauseated yesterday and today. She has not been eating or drinking consistently. Patient has a history of splenectomy about 3 years ago. The patient is not vaccinated for Covid and has not tested positive for Covid in the past. In the emergency room the patient is hemodynamically stable with a slightly tachycardic heart rate of 113 and a blood pressure 125/80. She is afebrile with a temperature of 98.3. The patient is in no respiratory distress with a respiratory rate of 15 and an SPO2 of 98% on room air. Review of systems: As per history of present illness and below otherwise all systems reviewed and negative. Past medical history: As per history of present illness and as reviewed below otherwise noncontributory. Surgical history: As per history of present illness and as reviewed below otherwise noncontributory. Social history: See social history for further information Family history: As per history of present illness and as reviewed below otherwise noncontributory. Physical exam: General: Well developed and well nourished. Alert and orientated x 3. Nontoxic in appearance and in no acute distress. Vital signs are stable and have been reviewed by me. Nursing notes were reviewed. HEENT: Atraumatic, normocephalic, pupils equal and reactive bilaterally, negative for conjunctival pallor or scleral icterus, mucous membranes moist, TMs normal bilaterally, throat clear, neck supple, nontender, trachea midline. No drooling or trismus noted. No meningeal signs. No hot potato voice noted. Lungs: Clear to auscultation bilaterally. No wheezes, rales, or rhonchi. Chest nontender. Normal work of breathing, no accessory muscles used. Heart: S1S2, regular rate and rhythm without overt murmur, gallops, or rubs. No JVD. No peripheral edema Abdomen: Soft, nondistended, nontender. Normoactive bowel sounds. Negative for masses or costovertebral tenderness. Skin: Intact, warm, dry. No lesions or rashes noted. Hematologic: No petechiae or purpra. Mucosa appropriate color and normal nail bed color and refill. Extremities: Atraumatic, moves all extremities per self without difficulty or deficits, negative for cords or calf pain. Neurovascular unremarkable. Neuro: Awake, alert, oriented. Cranial nerves II through XII unremarkable. Cerebellum unremarkable. Motor and sensory unremarkable throughout. Exam nonfocal. Psychiatric: Mood and affect are appropriate. Normal thought process. Answering questions appropriately. Notes: *This patient was seen and evaluated during the 2019 SARS-CoV-2 novel coronavirus pandemic period. Community viral transmission is ongoing at time of this encounter and the emergency department is operating under pandemic response procedures. As stated above the patient is a 36-year-old female who presents to the emergency room with fever, muscle aches, dizziness, brain fog, fever, and a dry cough for about 1 week. I have ordered blood work, strep test, COVID-19 swab, chest x-ray. The patient's CBC is remarkable for a hemoglobin of 10.1, hematocrit 33.9, MCV 74.2, MCHC 29.8. The anemia is microcytic hypochromic which could indicate blood loss or iron deficiency. The patient's guaiac was negative for the blood. The Patient states that she has heavy menstrual periods. I will order a abdomen CT to rule out any acute process. The patient is agreeable with this plan. Chest x-ray IMPRESSION: Lungs are clear. CT abdomen pelvis IMPRESSION: 1. Patchy areas of alveolar consolidation in the right middle lobe, left lingula and both lower lobes; diagnostic of COVID-19 infection. 2. No kidney stones or obstructive uropathy. 3. Normal appendix. 4. Abnormalities identified involving the uterus and adnexa bilateral; suggest transabdominal and transvaginal pelvic ultrasound. 5. 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 Dr. Man consulted regarding case. I have spoken with the patient and informed her of her Covid positive and the treatment regarding it. I informed the patient of her anemia and the need for a work-up by her primary care physician. I also informed the patient of her CT results and the need to follow-up with her primary care regarding it. The patient is agreeable to this discharge plan. I instructed the patient initiated to get a portable oxygen saturation device and she stated that she has one at home. Instructed the patient that she needs to return if her O2 sat gets below 90. The patient verbalized understanding. I have talked with the patient about today's findings, in addition to providing specific details for plan of care. Reassessment at the time of disposition demonstrates that the patient is in no acute distress. The patient is stable for discharge, counseling was provided and we discussed in great detail signs and symptoms that would prompt them to return to the Emergency Department. Medication, follow up and supportive care measures were reviewed and discussed. Voices understanding and is agreeable to plan of care. Denies any further questions or concerns at this time. Diagnostics: BC, CMP, chest x-ray, abdomen/pelvis CT Therapeutics: IV fluids, Zofran Impression: Anemia, COVID-19 Plan: 1. You were evaluated today on an emergent basis. Your complaints of fever, muscle aches, dizziness and brain fog along with your fever was evaluated with blood work which showed that you were anemic. You need to have an iron deficiency work-up for your anemia with your primary care provider. Your Covid swab was positive for COVID-19. Therefore you need to isolate and will be released by the state. Due to your anemia we did a CT which showed IMPRESSION 1. Patchy areas of alveolar consolidation in the right middle lobe, left lingula and both lower lobes; diagnostic of COVID-19 infection. 2. No kidney stones or obstructive uropathy. 3. Normal appendix. 4. Abnormalities identified involving the uterus and adnexa bilateral; suggest transabdominal and transvaginal pelvic ultrasound. 5. 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 2. Your COVID-19 screening is positive. That means you do have the coronavirus and you are considered contagious. Your vital signs and oxygen saturation are well enough that you were able to monitor your symptoms at home. Continue to monitor for trouble breathing, new confusion or inability to arouse, bluish lips or face or any of the other symptoms we discussed -if this occurs please return to the emergency room. 3. Please self quarantine until cleared by [facility] Department. Inform any persons that you have been in contact with since you started becoming symptomatic that you have tested positive; they should be made aware and take the appropriate steps as needed. 4. You can take NyQuil during the evening to help get a restful night sleep. May alternate Tylenol and ibuprofen as needed for pain and fever management. 5. The [facility] department will be calling you and following up with you. The [employer] Hotline phone number , They are open Friday - Friday 7am - 7pm. Follow up with your primary care provider for re-evaluation and re-testing after the 10 day quarantine and discuss when you should be seen. Definitive disposition and diagnosis as appropriate pending reevaluation and review of above. Treatments CORRESPONDENCE TRANSCRIBER: Reports: Acetaminophen - Related Data Allergies Allergy/AdvReac Type Severity Reaction Status Date / Time adhesive tape Allergy Redness Verified 07/15/19 09:39 latex Allergy Rash Verified 07/15/19 09:39 Home Meds: Home Meds Acetaminophen/oxyCODONE [Percocet 325-5 MG] 1 - 2 tab PO Q4H PRN 5 Days #15 tablet 07/20/19 [Rx] Past Medical History - Past Health History Medical/Surgical History: Denies Medical/Surgical History HEENT History: Reports: None Cardiovascular History: Reports: None Respiratory History: Reports: None Gastrointestinal History: Reports: None Genitourinary History: Reports: Renal Calculus SENIOR ENVIRONMENTAL TECHNICIAN History: Reports: Other (See Below) Other SENIOR ENVIRONMENTAL TECHNICIAN History: ovarian cyst Musculoskeletal History: Reports: None Neurological History: Reports: None Psychiatric History: Reports: None Endocrine/Metabolic History: Reports: Obesity/BMI 30+ Hematologic History: Reports: Other (See Below) Other Hematologic History: 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 Female Surgical History: Reports: Kidney stone extraction Other Female Surgeries/Procedures: rt ureteroscopy with stent placement May 17, 2019 Endocrine Surgical History: Reports: None Neurological Surgical History: Reports: None Musculoskeletal Surgical History: Reports: None Oncologic Surgical History: Reports: None Dermatological Surgical History: Reports: None Social & Family History - Family History Family Medical History: No Pertinent Family History - Tobacco Use Tobacco Use Status *Q: Never Tobacco User Second Hand Smoke Exposure: Yes - Caffeine Use Caffeine Use: Reports: None - Recreational Drug Use Recreational Drug Use: No ED ROS GENERAL - Review of Systems Review Of Systems: Comprehensive ROS is negative, except as noted in HPI. ED EXAM, GENERAL - Physical Exam Exam: See Below (See dictation) Course - Vital Signs Last Recorded V/S: Last Vital Signs Temp 98.3 F 02/25/21 12:58 Pulse 113 H 02/25/21 12:58 Resp 15 02/25/21 12:58 BP 125/80 02/25/21 12:58 Pulse Ox 98 02/25/21 12:58 - Orders/Labs/Meds Orders: Active Orders 24 hr Category Date Time Status Sodium Chloride 0.9% [Saline Flush] Med 02/25/21 13:52 Active 10 ml FLUSH ASDIRECTED PRN Sodium Chloride 0.9% [Saline Flush] Med 02/25/21 13:52 Active 2.5 ml FLUSH ASDIRECTED PRN Saline Lock Insert [OM.PC] Stat Oth 02/25/21 13:52 Ordered Medication Orders Sodium Chloride (Sodium Chloride 0.9% 10 Ml Syringe) 10 ml FLUSH ASDIRECTED PRN PRN Reason: Keep Vein Open Last Admin: 02/25/21 14:41 Dose: 10 ml Documented by: SADIE Sodium Chloride (Sodium Chloride 0.9% 2.5 Ml Syringe) 2.5 ml FLUSH ASDIRECTED PRN PRN Reason: Keep Vein Open Last Admin: 02/25/21 14:41 Dose: 2.5 ml Documented by: SADIE Labs: Laboratory Tests 02/25/21 02/25/21 02/25/21 Range/Units 14:26 14:26 14:55 WBC 5.01 (4.0-11.0) K/uL RBC 4.57 (4.30-5.90) M/uL Hgb 10.1 L (12.0-16.0) g/dL Hct 33.9 L (36.0-46.0) % MCV 74.2 L (80.0-98.0) fL MCH 22.1 L (27.0-32.0) pg MCHC 29.8 L (31.0-37.0) g/dL RDW Std Deviation 48.4 (28.0-62.0) fl RDW Coeff of Summer 18 H (11.0-15.0) % Plt Count 235 (150-400) K/uL MPV 10.60 (7.40-12.00) fL Neut % (Auto) 47.3 L (48.0-80.0) % Lymph % (Auto) 35.3 (16.0-40.0) % [place] % (Auto) 17.0 H (0.0-15.0) % Eos % (Auto) 0.0 (0.0-7.0) % Baso % (Auto) 0.4 (0.0-1.5) % Neut # (Auto) 2.4 (1.4-5.7) K/uL Lymph # (Auto) 1.8 (0.6-2.4) K/uL [place] # (Auto) 0.9 H (0.0-0.8) K/uL Eos # (Auto) 0.0 (0.0-0.7) K/uL Baso # (Auto) 0.0 (0.0-0.1) K/uL Nucleated RBC % 0.0 /100WBC Nucleated RBCs # 0 K/uL Sodium 140 (136-145) mmol/L Potassium 3.3 L (3.5-5.1) mmol/L Chloride 101 (98-107) mmol/L Carbon Dioxide 27.3 (21.0-32.0) mmol/L BUN 12 (7.0-18.0) mg/dL Creatinine 0.8 (0.6-1.0) mg/dL Est Cr Clr Drug Dosing 91.01 mL/min Estimated GFR (MDRD) > 60.0 ml/min Glucose 103 (74-106) mg/dL Calcium 8.0 L (8.5-10.1) mg/dL Total Bilirubin 0.2 (0.2-1.0) mg/dL AST 21 (15-37) IU/L ALT 23 (14-63) IU/L Alkaline Phosphatase 72 (46-116) U/L Total Protein 8.3 H (6.4-8.2) g/dL Albumin 3.4 (3.4-5.0) g/dL Globulin 4.9 H (2.6-4.0) g/dL Albumin/Globulin Ratio 0.7 L (0.9-1.6) SARS-CoV-2 RNA (JENNIFER) POSITIVE H (NEGATIVE) Group A Strep (PCR) (NOT DETECT) 02/25/21 Range/Units 14:55 WBC (4.0-11.0) K/uL RBC (4.30-5.90) M/uL Hgb (12.0-16.0) g/dL Hct (36.0-46.0) % MCV (80.0-98.0) fL MCH (27.0-32.0) pg MCHC (31.0-37.0) g/dL RDW Std Deviation (28.0-62.0) fl RDW Coeff of Summer (11.0-15.0) % Plt Count (150-400) K/uL MPV (7.40-12.00) fL Neut % (Auto) (48.0-80.0) % Lymph % (Auto) (16.0-40.0) % [place] % (Auto) (0.0-15.0) % Eos % (Auto) (0.0-7.0) % Baso % (Auto) (0.0-1.5) % Neut # (Auto) (1.4-5.7) K/uL Lymph # (Auto) (0.6-2.4) K/uL [place] # (Auto) (0.0-0.8) K/uL Eos # (Auto) (0.0-0.7) K/uL Baso # (Auto) (0.0-0.1) K/uL Nucleated RBC % /100WBC Nucleated RBCs # K/uL Sodium (136-145) mmol/L Potassium (3.5-5.1) mmol/L Chloride (98-107) mmol/L Carbon Dioxide (21.0-32.0) mmol/L BUN (7.0-18.0) mg/dL Creatinine (0.6-1.0) mg/dL Est Cr Clr Drug Dosing mL/min Estimated GFR (MDRD) ml/min Glucose (74-106) mg/dL Calcium (8.5-10.1) mg/dL Total Bilirubin (0.2-1.0) mg/dL AST (15-37) IU/L ALT (14-63) IU/L Alkaline Phosphatase (46-116) U/L Total Protein (6.4-8.2) g/dL Albumin (3.4-5.0) g/dL Globulin (2.6-4.0) g/dL Albumin/Globulin Ratio (0.9-1.6) SARS-CoV-2 RNA (JENNIFER) (NEGATIVE) Group A Strep (PCR) NOT DETECTED (NOT DETECT) Meds: Medications Generic Name Dose Route Start Last Admin Trade Name Sunil PRN Reason Stop Dose Admin Sodium Chloride 10 ml 02/25/21 13:52 02/25/21 14:41 Sodium Chloride 0.9% 10 Ml Syringe FLUSH 10 ml ASDIRECTED PRN Administration Keep Vein Open Sodium Chloride 2.5 ml 02/25/21 13:52 02/25/21 14:41 Sodium Chloride 0.9% 2.5 Ml Syringe FLUSH 2.5 ml ASDIRECTED PRN Administration Keep Vein Open Discontinued Medications Generic Name Dose Route Start Last Admin Trade Name Sunil PRN Reason Stop Dose Admin Sodium Chloride 1,000 mls @ 999 mls/hr 02/25/21 13:52 02/25/21 14:40 Normal Saline IV 02/25/21 14:52 999 mls/hr .BOLUS ONE Administration Iopamidol 100 ml 02/25/21 15:53 02/25/21 15:53 Iopamidol 755 Mg/Ml 500 Ml Multipack Bottle IVPUSH 02/25/21 15:54 100 ml ONETIME ONE Administration Ondansetron HCl 4 mg 02/25/21 13:52 02/25/21 14:40 Ondansetron 4 Mg/2 Ml Sdv IVPUSH 02/25/21 13:53 4 mg ONETIME ONE Administration Departure - Departure Time of Disposition: 16:38 Disposition: Home, Self-Care 01 Condition: Good Clinical Impression: COVID-19 Anemia Qualifiers: Anemia type: iron deficiency Iron deficiency anemia type: unspecified iron deficiency Qualified Code(s): D50.9 - Iron deficiency anemia, unspecified - Discharge Information *PRESCRIPTION DRUG MONITORING PROGRAM REVIEWED*: Not Applicable *COPY OF PRESCRIPTION DRUG MONITORING REPORT IN PATIENT ELISE: Not Applicable Instructions: COVID-19 Frequently Asked Questions, Anemia, COVID-19: What to Do If You Are Sick- [facility] (08/16/2020) Referrals: Ashanti Hernandez, [Primary Care Provider] - Forms: ED Department Discharge Additional Instructions: The following information is given to patients seen in the emergency department who are being discharged to home. This information is to outline your options for follow-up care. We provide all patients seen in our emergency department with a follow-up referral. The need for follow-up, as well as the timing and circumstances, are variable depending upon the specifics of your emergency department visit. If you don't have a primary care physician on staff, we will provide you with a referral. We always advise you to contact your personal physician following an emergency department visit to inform them of the circumstance of the visit and for follow-up with them and/or the need for any referrals to a consulting specialist. The emergency department will also refer you to a specialist when appropriate. This referral assures that you have the opportunity for follow-up care with a specialist. All of these measure are taken in an effort to provide you with optimal care, which includes your follow-up. Under all circumstances we always encourage you to contact your private physician who remains a resource for coordinating your care. When calling for follow-up care, please make the office aware that this follow-up is from your recent emergency room visit. If for any reason you are refused follow-up, please contact the [facility] Emergency Department at and asked to speak to the emergency department charge nurse. [facility] [address] [place] [id number] [address] [place] [address] Plan: 1. You were evaluated today on an emergent basis. Your complaints of fever, muscle aches, dizziness and brain fog along with your fever was evaluated with blood work which showed that you were anemic. You need to have an iron deficiency work-up for your anemia with your primary care provider. Your Covid swab was positive for COVID-19. Therefore you need to isolate and will be released by the [facility]. Due to your anemia we did a CT which showed IMPRESSION 1. Patchy areas of alveolar consolidation in the right middle lobe, left lingula and both lower lobes; diagnostic of COVID-19 infection. 2. No kidney stones or obstructive uropathy. 3. Normal appendix. 4. Abnormalities identified involving the uterus and adnexa bilateral; suggest transabdominal and transvaginal pelvic ultrasound. 5. 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 2. Your COVID-19 screening is positive. That means you do have the coronavirus and you are considered contagious. Your vital signs and oxygen saturation are well enough that you were able to monitor your symptoms at home. Continue to monitor for trouble breathing, new confusion or inability to arouse, bluish lips or face or any of the other symptoms we discussed -if this occurs please return to the emergency room. 3. Please self quarantine until cleared by [facility] Department. Inform any persons that you have been in contact with since you started becoming symptomatic that you have tested positive; they should be made aware and take the appropriate steps as needed. 4. You can take NyQuil during the evening to help get a restful night sleep. May alternate Tylenol and ibuprofen as needed for pain and fever management. 5. The [facility] department will be calling you and following up with you. The [place] Hotline phone number , They are open Friday - Friday 7am - 7pm. Follow up with your primary care provider for re-evaluation and re-testing after the 10 day quarantine and discuss when you should be seen. Sepsis Event Note (ED) - Focused Exam Vital Signs: Vital Signs Temp Pulse Resp BP Pulse Ox 02/25/21 12:58 98.3 F 113 H 15 125/80 98 - My Orders Last 24 Hours: My Active Orders 02/25/21 13:52 Sodium Chloride 0.9% [Saline Flush] 10 ml FLUSH ASDIRECTED PRN Sodium Chloride 0.9% [Saline Flush] 2.5 ml FLUSH ASDIRECTED PRN Saline Lock Insert [OM.PC] Stat - Assessment/Plan Last 24 Hours: My Active Orders 02/25/21 13:52 Sodium Chloride 0.9% [Saline Flush] 10 ml FLUSH ASDIRECTED PRN Sodium Chloride 0.9% [Saline Flush] 2.5 ml FLUSH ASDIRECTED PRN Saline Lock Insert [OM.PC] Stat
--- NOTE | 2021-02-25 15:04 | CR ---
INDICATION: Cough and fever. TECHNIQUE: Chest 2 views. COMPARISON: None FINDINGS: Cardiovascular and mediastinum: Heart size and vasculature are normal in caliber and appearance. Mediastinum is within normal limits. Lungs and pleural spaces: Lungs are clear. No sign of infiltrate or mass. No sign of pleural effusion. No pneumothorax. Bones and soft tissues: No significant findings. IMPRESSION: Lungs are clear. Dictated by River Perales MD @ 02/25/2021 3:03:32 PM (Electronically Signed)
[2021-02-25 15:06] LABS: BLOOD UREA NITROGEN,BUN 12 mg/dL (7.0-18.0); CARBON DIOXIDE,CO2 27.3 mmol/L (21.0-32.0); CHLORIDE,CL 101 mmol/L (98-107); GLUCOSE RANDOM 103 mg/dL (74-106); POTASSIUM,K 3.3 mmol/L (3.5-5.1); SODIUM,NA 140 mmol/L (136-145)
[2021-02-25] MEDS ORDERED: Iopamidol 755 MG/ML 500 ML Multipack Bottle IVPUSH ONE (15:53)
--- NOTE | 2021-02-25 16:27 | CT ---
INDICATION: Decreased hemoglobin. COMPARISON: Chest radiograph February 25, 2021. TECHNIQUE: CT abdomen and pelvis with intravenous contrast; coronal and sagittal reformats. FINDINGS: Patchy areas of alveolar consolidation both lower lobes, right middle lobe and left lingula; diagnostic of COVID-19 infection. No evidence of pleural effusion. Normal size cardiac silhouette without any evidence of pericardial effusion. No focal hepatic pathology. Spleen is absent. Small splenules identified in the left upper quadrant of the abdomen. No pancreatic pathology. Gallbladder is unremarkable. No adrenal pathology. No kidney stones or obstructive uropathy .no retroperitoneal lymphadenopathy. No evidence of abdominal or pelvic ascites. No pneumoperitoneum or intestinal obstruction. Normal appendix. enlarged ovaries bilateral with cystic changes; suggest transvaginal and transabdominal pelvic ultrasound for further assessment. markedly thickened endometrial lining measuring almost 4 cm in thickness; suggest pelvic ultrasound. Small subserosal fibroid involving the fundus of the uterus. an 18 mm low-density lower posterior uterine body; rule out fibroid. Enhancing nodules identified involving the anterior abdominal wall in the left upper quadrant of the abdomen as well as in the mesentery anteriorly; rule out splenosis IMPRESSION: 1. Patchy areas of alveolar consolidation in the right middle lobe, left lingula and both lower lobes; diagnostic of COVID-19 infection. 2. No kidney stones or obstructive uropathy. 3. Normal appendix. 4. Abnormalities identified involving the uterus and adnexa bilateral; suggest transabdominal and transvaginal pelvic ultrasound. 5. 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 Please note that all CT scans at this facility use dose modulation, iterative reconstruction, and/or weight-based dosing when appropriate to reduce radiation dose to as low as reasonably achievable. Dictated by Ortiz Solorzano MD @ 02/25/2021 4:25:50 PM (Electronically Signed)
== END 2021-02-25 16:58 | disposition home or self-care (01) ==
LOC: MW.ED 12:33
DX: U07.1 COVID-19 (principal); D50.9 Iron deficiency anemia, unspecified; E66.9 Obesity, unspecified; Z68.35 Body mass index [BMI] 35.0-35.9, adult; Z77.22 Contact with and (suspected) exposure to environmental tobacco smoke (acute) (chronic); Z91.040 Latex allergy status; Z91.048 Other nonmedicinal substance allergy status
CPT/HCPCS: 36415; 71046; 74177; 80053; 85025; 87635; 87651; 96374; 99284; J2405; J7030; Q9967; U0002